=== PATIENT | female | born 1995 ===

== ENCOUNTER 2023-12-11 14:23 | Outpatient (CLI) | payer OTHER | END 2023-12-11 14:24 | disposition home or self-care (01) | LOC: PRENATAL 14:23 | PROVIDERS: ATTEND Obstetrics & Gynecology Maternal & Fetal Medicine | DX: O35.9XX0 Maternal care for (suspected) fetal abnormality and damage, unspecified, not applicable or unspecified (principal); O35.3XX0 Maternal care for (suspected) damage to fetus from viral disease in mother, not applicable or unspecified; O44.02 Complete placenta previa NOS or without hemorrhage, second trimester; Z14.8 Genetic carrier of other disease; Z3A.20 20 weeks gestation of pregnancy ==

== ENCOUNTER → 2024-02-28 09:24 | Outpatient (CLI) | payer OTHER | END | disposition home or self-care (01) | LOC: PRENATAL 09:24 | PROVIDERS: ATTEND Obstetrics & Gynecology Maternal & Fetal Medicine | DX: O26.849 Uterine size-date discrepancy, unspecified trimester (principal); O36.8199 Decreased fetal movements, unspecified trimester, other fetus; Z14.8 Genetic carrier of other disease; Z3A.32 32 weeks gestation of pregnancy ==

== ENCOUNTER 2024-03-16 20:26 | Outpatient (CLI) | payer OTHER ==
[2024-03-16 19:19] VITALS: BP 102/67
[2024-03-16] MEDS ORDERED: FAMOTIDINE/PF 20 MG/2 ML VIAL IV SCH (20:30)
[2024-03-16] MEDS ORDERED: RINGERS SOLUTION,LACTATED 1,000 ML IV SCH (20:30)
[2024-03-16] MEDS ORDERED: ONDANSETRON HCL 2 MG/ML VIAL IV PRN (20:30)
[2024-03-16 21:10] LABS: URINE APPEARANCE Clear; URINE BILIRRUBIN Negative (NEGATIVE); URINE BLOOD Negative; URINE COLOR Yellow; URINE GLUCOSE Negative (NEGATIVE); URINE LEUKOCYTE Negative; URINE NITRATE Negative; URINE PROTEIN Trace (NEGATIVE); URINE UROBILINOGEN 0.2 E.U./dl
[2024-03-16 21:10] LABS: HEMATOCRIT 36.1 % (36.0-45.00); HEMOGLOBIN 12.1 g/dL (12.0-15.00); MEAN CELL VOLUME 76.1 fL (80.00-100.00); MEAN CORPUSCULAR HEMOGLOBIN 25.6 pg (27.00-32.0); MEAN CORPUSCULAR HGB CONC 33.7 g/dl (32.0-36.0); PLATELET COUNT 345 K/uL (150-450); RED BLOOD COUNT 4.74 M/uL (4.00-6.00); RED CELL DISTRIBUTION WIDTH 14.7 % (11.5-14.5)
[2024-03-16 21:14] LABS: URINE BACTERIA 958.7 uL (0.0-1933); URINE EPITHELIAL CELLS 48.6 uL (0.0-38.8); URINE RBC 17.4 uL (0.0-20.8); URINE WBC 8.9 uL (0.0-23.2)
[2024-03-16 21:35] LABS: ALBUMIN 2.8 gm/dL (3.4-5.0); BILIRUBIN TOTAL 0.6 mg/dL (0.3-1.2); CALCIUM 9.2 mg/dL (8.5-10.1); CREATININE SERUM 0.45 mg/dL (0.55-1.02); GFR 164.73; GLOBULINA 3.8 G/DL (2.4-3.5); POTASSIUM 4.13 mEq/L (3.5-5.1); TOTAL PROTEIN 6.6 gm/dL (6.4-8.2)
[2024-03-16 22:05] LABS: URINE KETONE >=160 (NEGATIVE)
[2024-03-16 23:34] VITALS: BP 112/69
[2024-03-17 03:13] VITALS: BP 97/66
[2024-03-17 08:32] VITALS: BP 92/64
[2024-03-17 11:59] VITALS: BP 110/70
[2024-03-17 13:15] VITALS: BP 110/70
== END 2024-03-17 13:15 | disposition home or self-care (01) ==
LOC: OBS/DEL 20:26
PROVIDERS: Obstetrics & Gynecology; ATTEND Obstetrics & Gynecology
DX: O26.893 Other specified pregnancy related conditions, third trimester (principal); R11.2 Nausea with vomiting, unspecified; K29.00 Acute gastritis without bleeding; E86.0 Dehydration

== ENCOUNTER 2024-04-17 10:00 | Inpatient (IN) | payer OTHER ==
[~2024-04-17] VITALS: Ht 149.9 cm; Wt 3.6 kg
[2024-04-17 12:15] LABS: HEMATOCRIT 33.8 % (36.0-45.00); HEMOGLOBIN 11.1 g/dL (12.0-15.00); MEAN CELL VOLUME 73.5 fL (80.00-100.00); MEAN CORPUSCULAR HEMOGLOBIN 24.2 pg (27.00-32.0); MEAN CORPUSCULAR HGB CONC 32.9 g/dl (32.0-36.0); PLATELET COUNT 314 K/uL (150-450); RED BLOOD COUNT 4.59 M/uL (4.00-6.00); RED CELL DISTRIBUTION WIDTH 15.5 % (11.5-14.5)
[2024-04-17 12:19] LABS: PH,URINE 6.5 (5.0-8.0); URINE APPEARANCE Clear; URINE BILIRRUBIN Negative (NEGATIVE); URINE BLOOD Negative; URINE COLOR Yellow; URINE GLUCOSE Negative (NEGATIVE); URINE LEUKOCYTE Trace; URINE NITRATE Negative; URINE PROTEIN Negative (NEGATIVE)
[2024-04-17 12:20] LABS: URINE BACTERIA 3269.1 uL (0.0-1933); URINE EPITHELIAL CELLS 124.1 uL (0.0-38.8); URINE RBC 28.7 uL (0.0-20.8); URINE WBC 35.4 uL (0.0-23.2)
[2024-04-17 12:42] LABS: INR 0.94; PROTHROMBIN TIME 10.3 SECONDS (9.0-11.5)
[2024-04-17 12:51] LABS: URINE CAST 0.88 uL (0.0-1.40); URINE KETONE 40 (NEGATIVE)
[2024-04-17 12:52] LABS: ALBUMIN 2.6 gm/dL (3.4-5.0); BILIRUBIN TOTAL 0.53 mg/dL (0.3-1.2); CALCIUM 9.3 mg/dL (8.5-10.1); CREATININE SERUM 0.54 mg/dL (0.55-1.02); GFR 133.47; GLOBULINA 3.8 G/DL (2.4-3.5); POTASSIUM 4.8 mEq/L (3.5-5.1); TOTAL PROTEIN 6.4 gm/dL (6.4-8.2)
[2024-04-25 07:32] VITALS: BP 112/75
[2024-04-25] MEDS ORDERED: OXYTOCIN 500 ML IV SCH (08:00)
[2024-04-25] MEDS ORDERED: OXYTOCIN 20 UNITS/500ML RL PIGGYBAG IV ONE (08:03)
[2024-04-25] MEDS ORDERED: PRENATA CHEWAB1 EACH PO (08:18)
[2024-04-25] MEDS ORDERED: ZOFRAN8 MG (08:21)
[2024-04-25] MEDS ORDERED: ZOFRAN8 MG PO (08:21)
[2024-04-25] MEDS ORDERED: PROTONIX20 MG PO (08:22)
[2024-04-25] MEDS ORDERED: RINGERS SOLUTION,LACTATED 1,000 ML IV SCH ×2 (08:30→21:00)
[2024-04-25 09:01] LABS: HEMATOCRIT 32.9 % (36.0-45.00); HEMOGLOBIN 10.9 g/dL (12.0-15.00); MEAN CELL VOLUME 73.2 fL (80.00-100.00); MEAN CORPUSCULAR HEMOGLOBIN 24.2 pg (27.00-32.0); MEAN CORPUSCULAR HGB CONC 33.1 g/dl (32.0-36.0); PLATELET COUNT 318 K/uL (150-450); RED CELL DISTRIBUTION WIDTH 16.3 % (11.5-14.5)
[2024-04-25 09:14] LABS: INR < 0.93; PARTIAL THROMBOPLASTIN TIME 24.7 SECONDS (22.0-34.0); PROTHROMBIN TIME 10.2 SECONDS (9.0-11.5)
[2024-04-25 11:46] VITALS: BP 104/72
[2024-04-25 15:03] VITALS: BP 109/65
[2024-04-25] MEDS ORDERED: OXYTOCIN 10 UNITS/ML VIAL ONE ×2 (18:39→21:51)
[2024-04-25] MEDS ORDERED: CEFAZOLIN SODIUM 1,000 MG VIAL ONE (18:40)
[2024-04-25] MEDS ORDERED: CITRIC ACID/SODIUM CITRATE 30 ML BLIST.PACK PO SCH (18:45)
[2024-04-25] MEDS ORDERED: CEFAZOLIN SODIUM 1,000 MG VIAL IV SCH (18:45)
[2024-04-25] MEDS ORDERED: THROMBIN,HU/FIBRINOGEN/CALCIUM 10 ML SYRINGE TOP ONE (20:00)
[2024-04-25] MEDS ORDERED: OXYTOCIN 1,000 ML IV SCH (21:00)
[2024-04-25] MEDS ORDERED: ONDANSETRON HCL 2 MG/ML VIAL IV PRN (21:00)
[2024-04-25] MEDS ORDERED: MORPHINE SULFATE 4 MG/ML CARTRIDGE IV PRN (21:00)
[2024-04-25] MEDS ORDERED: SIMETHICONE 125 MG CAPSULE PO SCH (21:00)
[2024-04-25] MEDS ORDERED: KETOROLAC TROMETHAMINE 30 MG VIAL IV NR (21:00)
[2024-04-25 22:31] VITALS: BP 116/80; O2SAT 99
[2024-04-26] MEDS ORDERED: ACETAMINOPHEN 325 MG TABLET PO SCH
[2024-04-26] MEDS ORDERED: KETOROLAC TROMETHAMINE 30 MG VIAL IV SCH
[2024-04-26 00:30] VITALS: BP 113/73
[2024-04-26 04:00] VITALS: BP 100/67
[2024-04-26] MEDS ORDERED: OxyCODONE HCL 5 MG TABLET (ROXICODONE) PO PRN (06:00)
[2024-04-26 06:28] LABS: HEMATOCRIT 28.5 % (36.0-45.00); HEMOGLOBIN 9.4 g/dL (12.0-15.00); MEAN CELL VOLUME 73.6 fL (80.00-100.00); MEAN CORPUSCULAR HEMOGLOBIN 24.2 pg (27.00-32.0); MEAN CORPUSCULAR HGB CONC 32.8 g/dl (32.0-36.0); PLATELET COUNT 272 K/uL (150-450); RED BLOOD COUNT 3.87 M/uL (4.00-6.00); RED CELL DISTRIBUTION WIDTH 15.8 % (11.5-14.5)
[2024-04-26 08:04] VITALS: BP 116/81
[2024-04-26] MEDS ORDERED: IRON FUM,PS/FOLIC ACID/VITC/B3 1 CAP CAPSULE PO SCH (09:00)
[2024-04-26] MEDS ORDERED: IBUprofen 400 MG TABLET PO SCH (09:00)
[2024-04-26] MEDS ORDERED: PNV,CALCIUM 72/IRON/FOLIC ACID 1 TAB TABLET PO SCH (09:00)
[2024-04-26 16:13] VITALS: BP 102/70
[2024-04-27 01:10] VITALS: BP 94/65
[2024-04-27 08:00] VITALS: BP 100/68
== END 2024-04-27 15:24 | disposition home or self-care (01) | DRG 788 ==
LOC: LDR 10:00 → OB/GYN 04-25 20:45
PROVIDERS: ADMIT Obstetrics & Gynecology; ATTEND Obstetrics & Gynecology
PROC: 4A1HXCZ Monitoring of Products of Conception, Cardiac Rate, External Approach (ICD-10-PCS; 2024-04-25)
PROC: 10D00Z1 Extraction of Products of Conception, Low, Open Approach (ICD-10-PCS; principal; 2024-04-25 19:30)
DX: O82 Encounter for cesarean delivery without indication (principal); O62.1 Secondary uterine inertia; Z3A.40 40 weeks gestation of pregnancy; Z37.0 Single live birth; Z20.822 Contact with and (suspected) exposure to COVID-19